=== PATIENT | male | born 1940 | race Caucasian/White ===

== ENCOUNTER → 2020-06-22 | Outpatient (CLI) | payer MEDICARE, OTHER ==
[2020-06-22 12:51] LABS: HEMOGLOBIN 13.5 gm/dl (14.0-17.5); RED BLOOD COUNT 4.26 M/UL (4.20-5.50); WHITE BLOOD COUNT 5.4 K/UL (4.5-11.0)
[2020-06-22 13:12] LABS: BUN/CREATININE RATIO 9 (0-10)
[2020-06-24 11:13] LABS: CHOLESTEROL, TOTAL 176 mg/dL (100-199); HDL SIZE 8.5 nm (>=9.2); HDL-C 35 mg/dL (>39); HDL-P (TOTAL) 23.2 umol/L (>=30.5); LARGE HDL-P 2.6 umol/L (>=4.8); LARGE VLDL-P 5.1 nmol/L (<=2.7); LDL SIZE 20.5 nm (>20.5); LDL SIZE 20.5 nm (>=20.8); LDL-C 114 mg/dL (0-99); LDL-P 1411 nmol/L (<1000); LP-IR SCORE 76 (<=45); SMALL LDL-P 733 nmol/L (<=527); TRIGLYCERIDES 149 mg/dL (0-149); VLDL SIZE 50.4 nm (<=46.6)
== END ==
LOC: LAB 12:05
PROVIDERS: Emergency Medicine
DX: E03.8 Other specified hypothyroidism (principal); E78.2 Mixed hyperlipidemia; F52.21 Male erectile disorder; R53.83 Other fatigue; I10 Essential (primary) hypertension
CPT/HCPCS: 80053; 80061; 83704; 84443; 85025

== ENCOUNTER → 2020-07-23 | Outpatient (CLI) | payer MEDICARE, OTHER | LOC: CT 08:32 | DX: R31.0 Gross hematuria (principal); I51.7 Cardiomegaly | CPT/HCPCS: 36415; 82565; Q9965 ==

== ENCOUNTER → 2020-12-08 | Outpatient (CLI) | payer MEDICARE, OTHER ==
[2020-12-08 08:36] LABS: HEMOGLOBIN 13.1 gm/dl (14.0-17.5); RED BLOOD COUNT 4.34 M/UL (4.20-5.50); WHITE BLOOD COUNT 4.8 K/UL (4.5-11.0)
[2020-12-08 08:56] LABS: BUN/CREATININE RATIO 9 (0-10)
== END ==
LOC: LAB 08:15
PROVIDERS: Internal Medicine Interventional Cardiology
DX: T82.190A Other mechanical complication of cardiac electrode, initial encounter (principal)
CPT/HCPCS: 36415; 80048; 85027

== ENCOUNTER 2021-10-03 15:37 | Emergency (ER) | payer MEDICARE, OTHER ==
[2021-10-03 16:24] LABS: HEMOGLOBIN 13.6 gm/dl (14.0-17.5); RED BLOOD COUNT 4.39 M/UL (4.20-5.50); WHITE BLOOD COUNT 10.2 K/UL (4.5-11.0)
[2021-10-03 16:48] LABS: BUN/CREATININE RATIO 12 (0-10)
== END 2021-10-03 20:20 | disposition short-term general hospital (02) ==
LOC: ER1 15:37
PROVIDERS: Physician Assistant Medical
DX: N13.2 Hydronephrosis with renal and ureteral calculous obstruction (principal); R31.0 Gross hematuria; I48.91 Unspecified atrial fibrillation; E87.1 Hypo-osmolality and hyponatremia; Z95.2 Presence of prosthetic heart valve; Z87.891 Personal history of nicotine dependence
CPT/HCPCS: 70450; 80053; 81001; 82550; 82553; 84484; 85025; 85610; 85730; 93005; 96374; 96375; 99285; J2270; J2405

== ENCOUNTER → 2021-10-27 | Outpatient (CLI) | payer MEDICARE, OTHER ==
[2021-10-27 08:11] LABS: HEMOGLOBIN 12.2 gm/dl (14.0-17.5); RED BLOOD COUNT 4.03 M/UL (4.20-5.50)
[2021-10-27 16:34] LABS: BUN/CREATININE RATIO 11 (0-10)
[2021-10-29 13:08] LABS: CHOLESTEROL, TOTAL 174 mg/dL (100-199); HDL SIZE 8.9 nm (>=9.2); HDL-C 38 mg/dL (>39); HDL-P (TOTAL) 23.7 umol/L (>=30.5); LARGE HDL-P 3.9 umol/L (>=4.8); LDL SIZE 20.5 nm (>20.5); LDL SIZE 20.5 nm (>=20.8); LDL-C 118 mg/dL (0-99); LDL-P 1377 nmol/L (<1000); LP-IR SCORE 59 (<=45); SMALL LDL-P 651 nmol/L (<=527); TRIGLYCERIDES 100 mg/dL (0-149); VLDL SIZE 48.9 nm (<=46.6)
== END ==
LOC: LAB 07:53
PROVIDERS: Emergency Medicine
DX: I10 Essential (primary) hypertension (principal); E78.2 Mixed hyperlipidemia; E03.8 Other specified hypothyroidism; I48.21 Permanent atrial fibrillation
CPT/HCPCS: 36415; 80053; 80061; 83704; 84443; 84550; 85025

== ENCOUNTER 2021-11-10 14:23 | Emergency (ER) | payer MEDICARE, OTHER ==
[2021-11-10 15:17] LABS: HEMOGLOBIN 12.4 gm/dl (14.0-17.5); RED BLOOD COUNT 3.97 M/UL (4.20-5.50); WHITE BLOOD COUNT 7.8 K/UL (4.5-11.0)
[2021-11-10] MEDS ORDERED: CIPRO500 MG PO (18:14)
== END 2021-11-10 20:30 | disposition home or self-care (01) ==
LOC: ER1 14:23
DX: R33.9 Retention of urine, unspecified (principal); R31.9 Hematuria, unspecified; Z95.0 Presence of cardiac pacemaker; Z90.49 Acquired absence of other specified parts of digestive tract; Z79.01 Long term (current) use of anticoagulants
CPT/HCPCS: 51702; 80053; 81001; 85025; 99283

== ENCOUNTER 2021-11-11 04:16 | Emergency (ER) | payer MEDICARE, OTHER ==
[~2021-11-11 04:16] MED LIST: CIPRO500 MG PO
[2021-11-11 05:06] LABS: HEMOGLOBIN 11.7 gm/dl (14.0-17.5); RED BLOOD COUNT 3.77 M/UL (4.20-5.50)
== END 2021-11-11 06:29 | disposition home or self-care (01) ==
LOC: ER1 04:16
PROVIDERS: Physician Assistant
DX: T83.098A Other mechanical complication of other urinary catheter, initial encounter (principal); N17.9 Acute kidney failure, unspecified; Y83.8 Other surgical procedures as the cause of abnormal reaction of the patient, or of later complication, without mention of misadventure at the time of the procedure
CPT/HCPCS: 51702; 51798; 80053; 85025; 99283

== ENCOUNTER 2021-11-20 20:22 | Emergency (ER) | payer MEDICARE, OTHER ==
[2021-11-20 21:28] LABS: HEMOGLOBIN 12.1 gm/dl (14.0-17.5); RED BLOOD COUNT 3.95 M/UL (4.20-5.50); WHITE BLOOD COUNT 18.7 K/UL (4.5-11.0)
[2021-11-20 21:48] LABS: BUN/CREATININE RATIO 14 (0-10)
[2021-11-21] MEDS ORDERED: SOTALOL80 MG PO (11:48)
[2021-11-21] MEDS ORDERED: FLOMAX 0.4 MG0.4 MG PO (11:48)
[2021-11-21] MEDS ORDERED: LEVOTHYROXINE25 MCG PO (11:48)
[2021-11-21] MEDS ORDERED: ELIQUIS2.5 MG PO (11:48)
[2021-11-21] MEDS ORDERED: TYLENOL EXTRA500 MG PO (11:49)
[2021-11-21] MEDS ORDERED: COLESTIPOL HCL1 GM PO (11:49)
== END 2021-11-21 17:48 | disposition short-term general hospital (02) ==
LOC: ER1 20:22
PROVIDERS: Physician Assistant; Physician Assistant Medical
DX: N13.2 Hydronephrosis with renal and ureteral calculous obstruction (principal); N40.1 Benign prostatic hyperplasia with lower urinary tract symptoms; R33.8 Other retention of urine; E87.1 Hypo-osmolality and hyponatremia; I48.91 Unspecified atrial fibrillation; Z20.822 Contact with and (suspected) exposure to COVID-19; Z95.0 Presence of cardiac pacemaker; Z79.01 Long term (current) use of anticoagulants
CPT/HCPCS: 80048; 80053; 81001; 83605; 84439; 84443; 85025; 87040; 87086; 96374; 99285; J0696; U0002